=== PATIENT | female | born 1955 | race Caucasian/White ===

== ENCOUNTER → 2019-12-09 | Outpatient (CLI) | payer MEDICARE, BC | LOC: MC.RAD 07:24 | DX: N63.10 Unspecified lump in the right breast, unspecified quadrant (principal) ==

== ENCOUNTER → 2019-12-18 | Outpatient (CLI) | payer BC | LOC: MC.RAD 06:55 | DX: N63.10 Unspecified lump in the right breast, unspecified quadrant (principal) ==